=== PATIENT | female | born 1960 | race Caucasian/White ===

== ENCOUNTER 2016-09-07 12:50 | Emergency (ER) | payer OTHER ==
[~2016-09-07] VITALS: Ht 162.6 cm; Wt 79.8 kg
--- NOTE | 2016-09-07 14:00 | Emergency Room Report ---
History of Present Illness General Chief Complaint: Lower Extremity Injury Source: Patient Present Illness HPI 56 YO Female presents to the ED c/o Left ankle and heel pain that is 10/10 in severity s/p twisting her foot last night in a parking lot. Patient states her pain is localized it does not radiate she states her pain is exacerbated upon weightbearing and walking and she has moderate relief with rest and elevation. Patient reports mild swelling denies bruising. Patient is worried because when she twisted her ankle she believes she heard a pop noise. She denies hitting her head or loosing consciousness. Patient denies previous injury to the extremity. Denies numbness tingling or loss of sensation or gross motor movements of the extremities, incontinence of bowel or bladder. Denies CP, Palpitations, LOC, AMS, dizziness, Changes in Vision, Sensation, paresthesias, or a sudden severe headache. Allergies: Coded Allergies: No Known Allergies (Unverified , 09/07/16) Patient History Past Medical History: see triage record Past Surgical History: none Pertinent Family History: none Last Menstrual Period: 2-3 yrs ago Now: No Immunizations: UTD Reviewed Nursing Documentation: PMH: Agreed, PSxH: Agreed Nursing Documentation-PMH Past Medical History: No Stated History Review of Systems All Other Systems: negative except mentioned in HPI Physical Exam Vital Signs Date Time Temp Pulse Resp B/P Pulse Ox O2 Delivery O2 Flow Rate FiO2 09/07/16 13:00 98.1 78 14 138/69 97 Room Air Sp02 EP Interpretation: reviewed, normal General Appearance: no apparent distress, alert, GCS 15, non-toxic Head: normocephalic, atraumatic Eyes: bilateral eye PERRL, bilateral eye normal inspection ENT: hearing grossly normal, normal pharynx, no angioedema, normal voice Neck: full range of motion, supple/symm/no masses Respiratory: lungs clear, normal breath sounds, speaking full sentences Cardiovascular #1: regular rate, rhythm, no edema, normal capillary refill Musculoskeletal: back normal, normal range of motion, tender - left lateral ankle ttp, swelling, ttp to the left heel, no bruises, FROM with pain, good circulation/capillary refill. Neurologic: alert, oriented x3, responsive, motor strength/tone normal, sensory intact, speech normal Psychiatric: judgement/insight normal, memory normal, mood/affect normal Skin: normal color, no rash, warm/dry, well hydrated Medical Decision Making PA Attestation Dr. paz is my supervising Physician whom patient management has been discussed with. Diagnostic Impression: Primary Impression: Left ankle sprain Qualified Codes: S93.402A - Sprain of unspecified ligament of left ankle, initial encounter ER Course Pt. presents to the ED c/o Left ankle and heel pain s/p twisting her foot last night in a parking lot. Ddx considered but are not limited to Fracture, dislocation, contusion, Sprain/ Strain/Spasm. Vital signs: are WNL, pt. is afebrile H&PE are most consistent with musculoskeletal injury will perform imaging to r/ o fractures/dislocations. ORDERS: - X-ray Left ankle 3 views - negative for fx, Dislocation, or significant soft tissue injury, per preliminary read in ED by Dr. Echevarria - interpretation is scribed by PA. - X-ray Left Foot 3 views - negative for fx, Dislocation, or significant soft tissue injury, per preliminary read in ED by Dr. Echevarria - interpretation is scribed by PA. ED INTERVENTIONS: - Motrin 600mg PO - Pt. provided with crutches. - Ray wrap applied by prosthetic technician. Pt. remains neurovascularly intact. DISCHARGE: At this time pt. is stable for d/c to home. Will provide printed patient care instructions, and any necessary prescriptions. Care plan and follow up instructions have been discussed with the patient prior to discharge. Last Vital Signs Date Time Temp Pulse Resp B/P Pulse Ox O2 Delivery O2 Flow Rate FiO2 09/07/16 13:00 98.1 78 14 138/69 97 Room Air Disposition: HOME, SELF-CARE Condition: Stable Scripts Ibuprofen* (MOTRIN*) 600 Mg Tablet 600 MG ORAL THREE TIMES A DAY, #30 TAB 0 Refills Prov: Berenice Archuleta 09/07/16 Referrals: [facility],REFERRING (PCP) Departure Forms: Return to Work Return to Work Date: Sep 09, 2016 Work Restrictions: No Heavy Lifting, No Prolonged Standing Other Restrictions: light duty x 1 week. Return to Full Activity: Sep 16, 2016 Patient Instructions: Ankle Sprain Additional Instructions: Take medications as directed. Follow up with PCP in 3-5 days Return sooner to ED if new symptoms occur, or current symptoms become worse. - Please note that this Emergency Department Report was dictated using [email or web address] dozer operator technology software, occasionally this can lead to erroneous entry secondary to interpretation by the dictation equipment. Berenice Archuleta Sep 07, 2016 14:00
[2016-09-07] MEDS ORDERED: IBUPROFEN600 MG ORAL (14:01)
[2016-09-07 14:06] VITALS: BP 138/69
--- NOTE | 2016-09-08 11:59 | Diagnostic Imaging Report ---
Indication: Pain Comparison: None Findings: 3 views of the left foot were obtained. No acute fractures, malalignment, erosions or periostitis are identified. Bone mineralization is within normal limits. Soft tissues are unremarkable. Impression: No acute findings
--- NOTE | 2016-09-08 13:34 | Diagnostic Imaging Report ---
Indication: Pain Comparison: None Findings: 3 views of the left ankle obtained. No acute fracture, malalignment, periostitis, or osteochondral defects are identified. Soft tissues swelling is present in the lateral part ankle. Impression: No acute fracture. Soft tissue swelling noted laterally
== END 2016-09-07 14:19 | disposition home or self-care (01) ==
LOC: EMR 13:50
DX: S93.402A Sprain of unspecified ligament of left ankle, initial encounter (principal); X50.1XXA Overexertion from prolonged static or awkward postures, initial encounter; Y92.481 Parking lot as the place of occurrence of the external cause
CPT/HCPCS: 99284